=== PATIENT | female | born 1955 | race African-American/Black ===

== ENCOUNTER 2019-05-05 14:23 | Emergency (ER) | payer MEDICAID ==
[~2019-05-05] VITALS: Ht 172.7 cm; Wt 65.0 kg
[2019-05-05] MEDS ORDERED: KETOROLAC 30MG/ML VIAL IV STA (15:25)
[2019-05-05] MEDS ORDERED: SODIUM CHLORIDE 0.9% 1,000 ML IV ONE (15:25)
[2019-05-05 18:00] LABS: BASOPHILS % 0.9 % (0.0-2.0); EOSINOPHILS % 0.2 % (0.0-5.0); HEMATOCRIT. 41.1 % (36.0-48.0); HEMOGLOBIN. 13.5 g/dL (12.0-16.0); MEAN CORPUSCULAR HEMOGLOBIN 30.4 pg (28.0-32.0); MEAN CORPUSCULAR VOLUME 92.3 fL (81.0-99.0); MONOCYTES % 3.3 % (2.0-8.0); NEUTROPHILS % 85.6 % (40.0-76.0); PLATELET 226 x1000/uL (130-400); RED BLOOD CELL COUNT 4.45 mill/uL (4.2-5.4); RED CELL DISTRIBUTION WIDTH 14.3 % (11.6-14.6)
[2019-05-05 18:04] LABS: CHLORIDE 114 mEq/L (98-107); PROTHROMBIN TIME 10.6 sec (9.6-11.0)
[2019-05-05 18:08] LABS: ETHANOL BLOOD < 10 mg/dL
[2019-05-05 20:10] VITALS: BP 134/84
== END 2019-05-05 20:15 | disposition home or self-care (01) ==
LOC: ER 14:23
DX: R55 Syncope and collapse (principal); G89.29 Other chronic pain; M54.5 Low back pain
CPT/HCPCS: 36415; 71045; 80053; 80320; 85025; 85610; 93005; 96361; 96374; 99285; J1885; J7030; G0480

== ENCOUNTER 2019-10-16 21:54 | Emergency (ER) | payer MEDICAID ==
[~2019-10-16] VITALS: Ht 160 cm; Wt 44.0 kg
[2019-10-16] MEDS ORDERED: KETOROLAC 30MG/ML VIAL IM ONE (22:30)
[2019-10-17 01:17] LABS: CLARITY URINE CLEAR (CLEAR); COLOR URINE YELLOW (YELLOW); KETONES URINE NEGATIVE (NEGATIVE); LEUKOCYTE ESTERASE URINE NEGATIVE (NEGATIVE); NITRITE URINE NEGATIVE (NEGATIVE); OCCULT BLOOD URINE NEGATIVE (NEGATIVE); PH URINE 6.5 (4.5-8.0); PROTEIN URINE NEGATIVE (NEGATIVE); SPECIFIC GRAVITY URINE 1.011 (1.005-1.030)
[2019-10-17 02:15] VITALS: BP 124/82
== END 2019-10-17 05:40 | disposition home or self-care (01) ==
LOC: ER 21:54
DX: M54.5 Low back pain (principal); G89.29 Other chronic pain; M48.061 Spinal stenosis, lumbar region without neurogenic claudication; Z98.51 Tubal ligation status
CPT/HCPCS: 81003; 96372; 99283; J1885

== ENCOUNTER 2019-10-17 07:50 | Emergency (ER) | payer MEDICAID ==
[~2019-10-17] VITALS: Ht 170.2 cm; Wt 59.0 kg
[2019-10-17] MEDS ORDERED: IBUPROFEN 600MG TABLET PO ONE (08:15)
[2019-10-17 08:35] VITALS: BP 148/68
== END 2019-10-17 08:33 | disposition home or self-care (01) ==
LOC: ER 07:50
DX: G89.29 Other chronic pain (principal); M54.9 Dorsalgia, unspecified; Z98.890 Other specified postprocedural states
CPT/HCPCS: 99282

== ENCOUNTER 2019-10-20 17:19 | Emergency (ER) | payer MEDICAID ==
[~2019-10-20] VITALS: Ht 162.6 cm; Wt 44.0 kg
[2019-10-20] MEDS ORDERED: CYCLOBENZAPRINE 10MG TABLET PO ONE (18:15)
[2019-10-20 18:40] VITALS: BP 130/79
== END 2019-10-20 18:44 | disposition home or self-care (01) ==
LOC: ER 17:19
DX: G89.29 Other chronic pain (principal); M54.5 Low back pain; M19.90 Unspecified osteoarthritis, unspecified site; Z98.51 Tubal ligation status; Z88.0 Allergy status to penicillin; Z88.8 Allergy status to other drugs, medicaments and biological substances
CPT/HCPCS: 99283

== ENCOUNTER 2019-10-21 04:27 | Emergency (ER) | payer MEDICAID ==
[~2019-10-21] VITALS: Ht 160 cm; Wt 50.0 kg
[2019-10-21] MEDS ORDERED: KETOROLAC 60MG/2ML VIAL IM ONE (06:15)
[2019-10-21 06:39] VITALS: BP 131/75
== END 2019-10-21 07:16 | disposition home or self-care (01) ==
LOC: ER 04:27
DX: M54.5 Low back pain (principal); Z88.0 Allergy status to penicillin; Z88.6 Allergy status to analgesic agent; Z98.890 Other specified postprocedural states
CPT/HCPCS: 96372; 99283; J1885